=== PATIENT | female | born 1950 ===

== ENCOUNTER 2022-02-02 20:24 | Inpatient (IN) | payer MEDICARE, OTHER ==
[~2022-02-02] VITALS: Ht 160 cm; Wt 119.7 kg
[2022-02-02 23:11] LABS: BASOPHILS ABSOLUTE AUTO 0.03 K/mm3 (0.00-0.23); BASOPHILS PERCENT AUTO 0 % (0-2); EOSINOPHILS PERCENT AUTO 0 % (0-6); Hemoglobin 9.5 g/dL (11.5-16.0); IMMATURE GRAN ABSOLUTE AUTO 0.19 K/mm3 (0.00-0.10); IMMATURE GRAN PERCENT AUTO 1 % (0-1); LYMPHOCYTES ABSOLUTE AUTO 0.46 K/mm3 (0.84-5.20); LYMPHOCYTES PERCENT AUTO 2 % (21-46); MONOCYTES ABSOLUTE AUTO 1.36 K/mm3 (0.16-1.47); MONOCYTES PERCENT AUTO 6 % (4-13); Mean Corpuscular HGB 23.1 pg (26.0-34.0); Mean Corpuscular HGB Conc 29.7 g/dL (31.5-36.5); Mean Corpuscular Volume 78 fL (80-100); Mean Platelet Volume 10.4 fL (9.1-12.4); NEUTROPHILS ABSOLUTE AUTO 21.51 K/mm3 (1.96-9.15); NEUTROPHILS PERCENT AUTO 91 % (41-73); Platelet Count 72 K/mm3 (150-400); RDW Coefficient Variation 17.7 % (11.7-14.2); RDW Standard Deviation 49.8 fL (35.1-46.3); Red Blood Cell Count 4.11 M/mm3 (3.80-5.20); White Blood Cell Count 23.55 K/mm3 (4.00-11.30)
[2022-02-02 23:24] LABS: Albumin, Blood 1.8 g/dL (3.4-5.0); Albumin/Globulin Ratio 0.3 (0.8-1.8); Bilirubin, Total 1.7 mg/dL (0.1-1.0); Bun/Creatinine Ratio 12.6 (12.0-20.0); Creatinine, Blood 1.59 mg/dL (0.40-1.00); Globulin, Blood 5.4 g/dL (2.2-4.0); Potassium, Blood 4.9 mmol/L (3.5-5.5); Total Protein, Blood 7.2 g/dL (6.4-8.2)
[2022-02-03 00:02] LABS: Base Excess Venous 0.8 mmol/L; PO2 Venous 92.4 mmHg (38-42)
--- NOTE | 2022-02-03 00:18 | NUR ---
ADMISSION NOTE: PT ARRIVED TO ICU ROOM 7 AT 2135 VIA EMS ON TRANSPORT VENTILATOR AND WITH STATED RATE OF LEVOPHED OF 8MCG/MINUTE. LEVOPHED WAS NOT ON A PUMP FOR TRANSPORT. PT CONNECTED TO ICU MONITORS AND HOSPITAL VENTILATOR AND WAS THEN MOVED TO THE ICU BED. 7.5 ETT WAS NOTED TO BE AT 23CM AT PT'S TEETH, OGT IN PLACE AND CONNECTED TO LOW INTERMITTANT SUCTION. PT IS NOT CURRENTLY RESPONSIVE TO VERBAL SIMULUS BUT PUPILS AR BRAYDON. SWB PLACED FOR LINES AND TUBE PROTECTION. +3 GENERALIZED EDEMA NOTED.
--- NOTE | 2022-02-03 08:02 | NUR ---
SHIFT SUMMERY: PT ARRIVED FROM [facility] VIA EMS VENTED AND EMS REPORTS 300 MG KETAMINE AND 10 MD VERSED GIVEN EN-ROUTE FOR VENT COMPLIANCE. PT TRANSFERED TO ICU MONITORS WITHOUT INCIDENT. PT NOT RESPONSIVE TO VOICE, DOES NOT OPEN EYES TO PAIN OR TO VOICE BUT SHE DOES MOVE ALL EXTREMETIES TO PAIN. PT'S PUPILS ARE 4 AND PEARRL. PT HAS A MODERATE COUGH BUT NO GAG REFLEX. PT DOES SEEM TO TRY TO MANAGE ORAL SECREATIONS WITH A SWALLOW. PT HAS RIGHT EJ WHICH WAS PLACED BY EMS IN ROUTE. IJ PLACED AT [facility] HAS 7CM EXPOSED AND PER MD IS NOT DEEP ENOUGH PER MD ON CXR, BUT GOOD BLOOD RETUR WAS NOTED AND OK WAS RECEIVED FROM DR. CANTU TO INFUSE LEVOPHED THROUGH DISTAL LUMEN OVER NIGHT. PT HAS SKIN TEARS TO BILATERAL FOREARMS AND HAS ABRASIONS TO STERNUM WELL INJURY TO LEFT GREAT TOE NAIL. PHOTOS IN CHART. PT HAS VERY FRIGILE SKIN AND BLE ARE VERY EDEMETOUS AND REDNESS IS NOTED. PT TURNED Q2H AND ORAL CARE DONE PER NORMAL PRACTICE.
--- NOTE | 2022-02-03 10:00 | NUR ---
ASSUMED CARE BEDSIDE REPORT FROM RADHA DAVIDSON AT 0700. PT INTUBATED. VENT SETTINGS AC/VC 18/365/5/40%. LUNGS CLEAR, DIM IN BASES. PT NOT ON SEDATION. COUGH/SWALLOW REFLEX, NO GAG, NURIS. OVERBREATHING VENT. WITHDRAWS EXT TO PAINFUL STIMULI. DOES NOT FOLLOW COMMANDS. ST ON MONITOR. LEVO PLACED ON STANDBY, MAP>65. OGT TO LIS, RED/BROWN EMESIS OUT. ABD DISTENDED, FIRM, HYPOACTIVE BT. ANASCARCIA. 3+ EDEMA BLE, 2+ BUE. SKIN FRAGILE, MULTIPLE SKIN TEARS AND BRUISING. SEE SKIN ASSESSMENT. GONGORA PATENT, DRAINING CLEAR YELLOW URINE TO GRAVITY. PLAN FOR ECHO THIS SHIFT. CVC TO BE REMOVED THIS SHIFT D/T EXCESSIVE EXPOSED CATH. WILL CONTINUE TO MONITOR.
--- NOTE | 2022-02-03 14:16 | NUR ---
Echocardiogram using 0.50ml of Definity contrast eas performed.
--- NOTE | 2022-02-03 17:13 | NUR ---
SHIFT SUMMARY PT REMAINS INTUBATED. VENT SETTINGS AC/VC 18/365/5/35%. LUNGS COARSE c CRACKLES IN BASES. SCANT SECRETIONS THROUGH ETT. NEURO UNCHANGED, COUGH/SWALLOW REFLEX. WITHDRAWS FROM PAIN. ONE DOSE OF FENT GIVEN FOR VENT COMPLIANCE. TOLERATED WELL. LASIX D/C'D. 800 ML CLEAR YELLOW URINE OUT. GONGORA PATENT. ANASCARSA WORSE SINCE BEGINING OF SHIFT. ENTIRE BODY. LEVO TITRATED OFF. BP STABLE. ST ON MONITOR. CVC REMOVED, DRESSING INTACT. POWERGLIDE PLACED TO RUE. ECHO COMPLETE, ABD U/S IN PROCESS. BED BATH COMPLETE THIS SHIFT. WILL CONTINUE TO MONITOR UNTIL REPORT TO ONCOMING NURSE.
--- NOTE | 2022-02-03 19:00 | NUR ---
ASSUMED CARE. REPORT RECEIVED FROM ASHA DAVIDSON. PT RESTING IN BED, VENTILATED VIA ETT. VENT SETTINGS: 18/365/5/35%. OG TUBE IN PLACE, TF AT 20 ML/HR. PG IN LUZ ELENA, IV IN R/EJ. NS AT 10 ML/HR KVO. GONGORA CATHETER IN PLACE. SWB RESTRAINTS IN PLACE. VS STABLE WILL CONTINUE TO MONITOR.
[2022-02-04 03:42] LABS: BASOPHILS ABSOLUTE AUTO 0.02 K/mm3 (0.00-0.23); BASOPHILS PERCENT AUTO 0 % (0-2); EOSINOPHILS ABSOLUTE AUTO 0.03 K/mm3 (0.00-0.68); EOSINOPHILS PERCENT AUTO 0 % (0-6); Hematocrit 28.5 % (33.0-51.0); Hemoglobin 8.5 g/dL (11.5-16.0); IMMATURE GRAN ABSOLUTE AUTO 0.05 K/mm3 (0.00-0.10); IMMATURE GRAN PERCENT AUTO 0 % (0-1); LYMPHOCYTES PERCENT AUTO 5 % (21-46); MONOCYTES ABSOLUTE AUTO 0.91 K/mm3 (0.16-1.47); MONOCYTES PERCENT AUTO 8 % (4-13); Mean Corpuscular HGB 22.8 pg (26.0-34.0); Mean Corpuscular HGB Conc 29.8 g/dL (31.5-36.5); Mean Corpuscular Volume 76 fL (80-100); Mean Platelet Volume 10.7 fL (9.1-12.4); NEUTROPHILS ABSOLUTE AUTO 9.75 K/mm3 (1.96-9.15); NEUTROPHILS PERCENT AUTO 86 % (41-73); Platelet Count 51 K/mm3 (150-400); RDW Coefficient Variation 17.7 % (11.7-14.2); RDW Standard Deviation 48.6 fL (35.1-46.3); Red Blood Cell Count 3.73 M/mm3 (3.80-5.20); White Blood Cell Count 11.36 K/mm3 (4.00-11.30)
[2022-02-04 04:00] LABS: Albumin, Blood 1.6 g/dL (3.4-5.0); Albumin/Globulin Ratio 0.3 (0.8-1.8); Bilirubin, Total 0.7 mg/dL (0.1-1.0); Bun/Creatinine Ratio 22.8 (12.0-20.0); Calcium, Blood 7.8 mg/dL (8.5-10.1); Creatinine, Blood 1.49 mg/dL (0.40-1.00); Globulin, Blood 4.8 g/dL (2.2-4.0); Phosphorus, Blood 4.1 mg/dL (2.5-4.9); Potassium, Blood 4.1 mmol/L (3.5-5.5); Total Protein, Blood 6.4 g/dL (6.4-8.2)
--- NOTE | 2022-02-04 15:56 | NUR ---
FAMILY VISITING IN ROOM, DAUGHTER AND GRAND DAUGHTER
--- NOTE | 2022-02-04 17:52 | NUR ---
NO PURPOSEFUL MOVEMENTS, OPENS EYES SLOWLY, NO TRACKING, UNABLE TO MAKE NEEDS KNOWN, SCDS ON, + BABINSKI. RESPONDS TO PAINFUL STIMULUS. RESTRAINTS OFF, NO ARM MOVEMENT, ELEVATED ON PILLOWS, VERY FRAGILE SKIN, ARMS WEEPING, ROM. INTUBATED 7.5 SIZE, 23@ GUMS, ACVC 18/365/35%/5. ABD FIRM AND DISTENDED, NO CHARTED BM, NO RESIDUAL TODAY, TF AT 40 ML/HR, GONGORA TO GRAVITY. HEAD CT TOMORROW, FAMILY AT BEDSIDE, FAMILY HAS MEET WITH PALLIATIVE CARE, DR DON SPOKE WITH FAMILY ON THE PHONE, FAMILY WANTING TO WAIT UNTIL HEAD CT TOMORROW BEFORE MAKING ANY HEALTHCARE DECISIONS. REPOSITIONED EVERY TWO HOURS. WILL RELAY TO PM RNCRISTIANE
--- NOTE | 2022-02-04 18:58 | NUR ---
ASSUMED CARE. REPORT RECEIVED FROM ASHA DAVIDSON. FAMILY AT BEDSIDE. PT IN BED, VENTED VIA ETT. VENT SETTINGS: AC/VC 18/350/5/35%. OG TUBE IN PLACE, TF AT 30 ML/HR. PG IN LUZ ELENA, IV PUMP RUNNING NS AT 10 ML/HR TKO. GONGORA CATHETER IN PLACE. VS STABLE ATT, WILL CONTINUE TO MONITOR.
[2022-02-05 04:12] LABS: BASOPHILS ABSOLUTE AUTO 0.02 K/mm3 (0.00-0.23); BASOPHILS PERCENT AUTO 0 % (0-2); EOSINOPHILS PERCENT AUTO 1 % (0-6); Hematocrit 28.3 % (33.0-51.0); Hemoglobin 8.4 g/dL (11.5-16.0); IMMATURE GRAN ABSOLUTE AUTO 0.03 K/mm3 (0.00-0.10); IMMATURE GRAN PERCENT AUTO 0 % (0-1); LYMPHOCYTES ABSOLUTE AUTO 0.61 K/mm3 (0.84-5.20); LYMPHOCYTES PERCENT AUTO 9 % (21-46); MONOCYTES ABSOLUTE AUTO 0.62 K/mm3 (0.16-1.47); MONOCYTES PERCENT AUTO 9 % (4-13); Mean Corpuscular HGB 22.8 pg (26.0-34.0); Mean Corpuscular HGB Conc 29.7 g/dL (31.5-36.5); Mean Corpuscular Volume 77 fL (80-100); Mean Platelet Volume 10.6 fL (9.1-12.4); NEUTROPHILS ABSOLUTE AUTO 5.61 K/mm3 (1.96-9.15); NEUTROPHILS PERCENT AUTO 80 % (41-73); Platelet Count 51 K/mm3 (150-400); RDW Coefficient Variation 17.8 % (11.7-14.2); RDW Standard Deviation 49.1 fL (35.1-46.3); Red Blood Cell Count 3.69 M/mm3 (3.80-5.20); White Blood Cell Count 6.99 K/mm3 (4.00-11.30)
[2022-02-05 04:30] LABS: Albumin, Blood 1.5 g/dL (3.4-5.0); Anion Gap 3 mmol/L (6-16); Blood Urea Nitrogen 36 mg/dL (8-24); Bun/Creatinine Ratio 35.3 (12.0-20.0); CO2, Blood 32 mmol/L (21-32); Calcium, Blood 7.6 mg/dL (8.5-10.1); Chloride, Blood 103 mmol/L (98-108); Creatinine, Blood 1.02 mg/dL (0.40-1.00); Glomerular Filtration Rate 59 (60-); Glucose, Blood 147 mg/dL (70-99); Phosphorus, Blood 2.9 mg/dL (2.5-4.9); Potassium, Blood 3.8 mmol/L (3.5-5.5); Sodium, Blood 138 mmol/L (136-145)
--- NOTE | 2022-02-05 06:21 | NUR ---
SHIFT SUMMARY. PT RESTED IN BED THROUGHOUT SHIFT. VENT SETTINGS UNCHANGED. TF AT 40 ML/HR CURRENTLY. NS TKO 10 ML/HR, PROPOFOL AT 10 MCG/KG/MIN. GNOGORA IN PLACE, 650 MLS DARK URINE OUT THIS SHIFT. VS STABLE THROUGHOUT SHIFT. PT REQUIRED MULTIPLE PRN DOSES OF FENTANYL DURING SHIFT. ORDER OBTAINED FROM DR. LANGLEY FOR PROPOFOL FOR FURTHER SEDATION IN ORDER TO MAINTAIN VENT COMPLIANCE. SEE SHIFT ASSESSEMENT FOR FURTHER DETAILS, WILL CONTINUE TO MONITOR AND REPORT OFF TO DAYSHIFT RN.
--- NOTE | 2022-02-05 08:39 | NUR ---
[place] of Care: Care assumed at 0700hr. Patient intubated and sedated with propofol gtt at 10mcg/kg/min. Facial grimace to noxious stimuli, but not following any commands. Fixed upward gaze, pupils equal and brisk reaction to lite. Occasional non-purposeful movement of BLE's, normal plantar reflex. Positive cough but no gag reflex. Vent to AC 18/350/5/35%, spO2- 97%, occasional coughing but tolerating vent without difficulty. HR shows sinus rhythm in the 80's BP stable. Power-glide to LUZ ELENA patent and intact. EJ to rt side of neck, plan to remove early this shift (placed in [place] before admission). Santiago cath patent and intact, draining clear dark yellow urine. TF at 40ml/hr at shift change, residual of 10ml this morning. TF rate then increased to goal of 50ml/hr. Propofol gtt stopped at approx 0730hr. Patient no longer has fixed upward gaze, and occasionally opening eyes. No tracking staff, no corneal reflex, and continues to not follow any commands. Heart rhythm then began to go in-and-out of A-fibb, rate increasing to the 140's-150. Patient also had increase in coughing and breath stacking. Prn fentanyl given with good effect. Heart rhythm now back to sinus rhythm, BP remains stable. Will continue to monitor.
--- NOTE | 2022-02-05 16:30 | NUR ---
review of pt with nursing staff. Theraputic time with pt comforting her and talking to her.
--- NOTE | 2022-02-05 17:59 | NUR ---
Shift Summary: Patient remains inutabated, no changes to vent settings throughout shift. No significant changes to neuro status throughout shift. Patient was able to open eyes to verbal stimuli and slightly turned head to command, but continues to not track staff or follow any commands. HR remained stable and in sinus rhythm throughout the morning. At approx 1200hr HR changed to A-fibb-RVR with rate 140's-170's. Received orders per Dr. Jones to give 5mg cardizem push followed by cardizem gtt. Cardizem started at 5mg/hr then titrated up to 15mg/hr, effective to decrease heart rate to 70's but remains A-fibb. Attempted to stop cardizem gtt from 5mg/hr, but heart rate increased back to 130's. Gtt now at 5mg/hr, HR stable. Plan to consult with Dr. Jones about starting PO cardizem when he is available. Continues to tolerate TF without difficulty. Santiago cath remains patent and intact, draining clear yellow urine. New PG placed to REGINALDO, now bilateral PG's, both patent and intact. EJ to right neck D/C'd without difficulty. Bedside report given to NOC shift RN.
--- NOTE | 2022-02-05 22:26 | NUR ---
ASSUMED CARE AT 1900 PATIENT IS INTUBATED AND GETTING FENTANYL FOR COMFORT/SEDATION. PATIENT CONTINUED TO COUGH AND UNABLE TO TOLERATE VENT, PROPOFOL STARTED PER DR. DON. PATIENT WITHDRAWS TO PAIN AND OPENS EYES TO SOUND, NO TRACKING OR FOLLOWING COMMANDS. 02 SATS 97% ON VENT AC VC + 18/365/5/40%, RR 18-22. LS CLEAR/DIM. HR A. FLUTTER, ON CARDIZEM DRIP AT 5 MG/HR, TALKED WITH DR. DON ABOUT PO CARDIZEM, TO CONTINUE IV TONIGHT. GONGORA PATENT AND DRAINING TO GRAVITY. SOME VAGINAL BLEEDING, DR YUDITH. TURNED AND ORAL CARE COMPLETE. SEE SHIFT ASSESSMENT FOR MORE DETAIL.
[2022-02-06 05:13] LABS: BASOPHILS ABSOLUTE AUTO 0.03 K/mm3 (0.00-0.23); BASOPHILS PERCENT AUTO 0 % (0-2); EOSINOPHILS ABSOLUTE AUTO 0.17 K/mm3 (0.00-0.68); EOSINOPHILS PERCENT AUTO 3 % (0-6); Hematocrit 30.4 % (33.0-51.0); Hemoglobin 8.9 g/dL (11.5-16.0); IMMATURE GRAN ABSOLUTE AUTO 0.02 K/mm3 (0.00-0.10); IMMATURE GRAN PERCENT AUTO 0 % (0-1); LYMPHOCYTES ABSOLUTE AUTO 0.98 K/mm3 (0.84-5.20); LYMPHOCYTES PERCENT AUTO 15 % (21-46); MONOCYTES ABSOLUTE AUTO 0.82 K/mm3 (0.16-1.47); MONOCYTES PERCENT AUTO 12 % (4-13); Mean Corpuscular HGB 22.8 pg (26.0-34.0); Mean Corpuscular HGB Conc 29.3 g/dL (31.5-36.5); Mean Corpuscular Volume 78 fL (80-100); Mean Platelet Volume 11.5 fL (9.1-12.4); NEUTROPHILS ABSOLUTE AUTO 4.72 K/mm3 (1.96-9.15); NEUTROPHILS PERCENT AUTO 70 % (41-73); RDW Coefficient Variation 17.8 % (11.7-14.2); RDW Standard Deviation 50.3 fL (35.1-46.3); Red Blood Cell Count 3.91 M/mm3 (3.80-5.20); White Blood Cell Count 6.74 K/mm3 (4.00-11.30)
[2022-02-06 05:35] LABS: Albumin, Blood 1.4 g/dL (3.4-5.0); Anion Gap 4 mmol/L (6-16); Blood Urea Nitrogen 40 mg/dL (8-24); Bun/Creatinine Ratio 38.5 (12.0-20.0); CO2, Blood 34 mmol/L (21-32); Calcium, Blood 7.5 mg/dL (8.5-10.1); Chloride, Blood 103 mmol/L (98-108); Creatinine, Blood 1.04 mg/dL (0.40-1.00); Glomerular Filtration Rate 57 (60-); Glucose, Blood 147 mg/dL (70-99); Phosphorus, Blood 2.8 mg/dL (2.5-4.9); Potassium, Blood 3.7 mmol/L (3.5-5.5); Sodium, Blood 141 mmol/L (136-145)
[2022-02-06 05:37] LABS: Platelet Count 50 K/mm3 (150-400)
--- NOTE | 2022-02-06 05:38 | NUR ---
SHIFT SUMMARY PATIENT REMAINS INTUBATED AND SEDATED ON PROPOFOL. OPENS EYES TO TOUCH, NO TRACKING, NO FOLLOWING COMMANDS, RESPONDS TO PAIN. 02 SATS 97% ON VENT 18/365/5/40%. HR A.FLUTTER, 70s, CARDIZEM DRIP INF AT 5MG/HR. BP STABLE. TUBE FEED INF AT GOAL RATE 50 MLS HR WITH 30 MLS FLUSHES Q4 HOURS. RISDUALS 45 MLS. GONGORA PATENT AND DRAINING TO GRAVITY. BATH COMPLETED THIS SHIFT WITH LINEN CHANGE. DRESSING CHNAGED ON WOUNDS. PATIENT TURNED Q2 HOURS. SCDs IN PLACE, BREAKS PROVIDED.
--- NOTE | 2022-02-06 18:07 | NUR ---
SHIFT SUMMARY: PT REMAINS INTUBATED AND SEDATED. UNABLE TO RESPOND TO VERBAL AND NOXIOUS STIMULI. PROPOFOL INFUSING AT 15 MCG/KG/MIN. CARDIZEM GTT @ 5MG/HR. PT REMAINS IN AFLUTTER. HR 70'S-80'S. BP STABLE. O2 SATS >95%. VENT SETTINGS AC/VC 18/365/5/40%. TF INUFUSING AT GOAL RATE. PT HAS GONGORA CATHETER IN PLACE DRAINING YELLOW URINE TO GRAVITY. HAD APPROX 600ML OF OUTPUT THIS SHIFT. PT REPOS Q2. WILL CONTINE TO MONITOR AND REPORT TO ONCOMING RN.
--- NOTE | 2022-02-06 20:47 | NUR ---
ASSUMED CARE AT 1900 PATIENT IS INTUBATED AND SEDATED ON PROPOFOL. NO EYE OPENING AT THIS TIME, PUPILS EQUAL AND REACTIVE, WITHDRAWS TO PAIN. 02 SATS 95% ON VENT AC VC 18/365/5/40%, RR 19. TOLERATING VENT WILL WITH SEDATION. HR A. FLUTTER 70s, CARDIZEM INF AT 5 MG/HR. BP STABLE. OG INF VITAL HP AT GOAL RATE OF 50 MLS/HR, WITH 30 MLS FLUSHES Q4 HOURS. GONGORA PATENT AND DRAINING TO GRAVITY, SMALL AMOUNT OF VAGINAL BLEEDING. WOUND DRESSINGS CHANGED AND DRY PADS PLACED UNDER UPPER EXTREMETIES FOR WEEPING. EXTREMETIES ELEVATED, PATIENT REPOSITIONED AND ORAL CARE DONE. SEE SHIFT ASSESSMENT FOR MORE DETAIL.
[2022-02-07 03:44] LABS: Albumin, Blood 1.4 g/dL (3.4-5.0); Anion Gap 4 mmol/L (6-16); Blood Urea Nitrogen 41 mg/dL (8-24); Bun/Creatinine Ratio 45.7 (12.0-20.0); CO2, Blood 34 mmol/L (21-32); Calcium, Blood 7.9 mg/dL (8.5-10.1); Chloride, Blood 103 mmol/L (98-108); Glomerular Filtration Rate 68 (60-); Glucose, Blood 158 mg/dL (70-99); Phosphorus, Blood 2.8 mg/dL (2.5-4.9); Potassium, Blood 3.5 mmol/L (3.5-5.5); Sodium, Blood 141 mmol/L (136-145)
--- NOTE | 2022-02-07 05:58 | NUR ---
SHIFT SUMMARY PATIENT REMAINS INTUBATED AND SEDATED ON PROPOFOL. PUPILS REACTIVE AND EYE OPENING TO PAINFUL STIMULI. MOVEMENT IN LOWER EXTREMETIES, UPPER EXTREMETIES ABSENT OF MOVEMENT. 02 SATS 96% ON VENT AC VC 18/365/5/40%. HR A. FLUTTER MOST THE SHIFT, A.FIB AT TIMES, CARDIZEM DRIP STILL INFUSING. BP STABLE. OG INF TUBE FEED AT GOAL RATE WITH VITAL HP AT 50 MLS/HR. GONGORA PATENT AND DRAINING TO GRAVITY. BED BATH COMPLETE. REPOSITIONED Q2 HOURS.
--- NOTE | 2022-02-07 14:36 | NUR ---
EXTUBATION TO COMFORT CARE MULTIPLE PT CHILDREN AND GRANDAUGHTER AT BEDSIDE THIS AFTERNOON TO SEE PT. EXTENSIVE DISCUSSION ABOUT PT CONDITION AND OPTIONS FOR CARE HAD. PT FAMILY HAS DECIDED TO WITHDRAW CARE AND MAKE PT COMFORT CARE. MAINOR FROM PALLIATIVE CARE AT BEDSIDE TO PROVIDE SUPPORT. DR DON NOTIFIED AND OK GIVEN TO PROCEED WITH EXTUBATION AND COMFORT CARE. PT PREMEDICATED WITH MORPHINE IV, THEN PT EXTUBATED AT 1430 BY RT. PT FAMILY REMAINS AT BEDSIDE. WILL CONTINUE TO MONITOR.
--- NOTE | 2022-02-07 14:53 | NUR ---
Spoke with small business director Len and Primary RN Tre. Family has arrived and has elected to move forward with comfort care. Pt resting in bed and intubated. Family at bedside. Offered therapeutic listening and answered questions. Gentle discussion on what to expect with terminal withdrawel of care. Continued supportive visit as Pt is premedicated by primary RN and is Extubated. Gentle discussion with family on the importance of speaking with Pt and offering reassurance. Continued supportive visit. Ended visit to allow family alone time. Pt appears comfortalbe with no S/S of distress. Palliative Care will remain available.
--- NOTE | 2022-02-07 14:58 | NUR ---
Spiritual Care Call Back Pt, is nonresponsive and intubated. Several family members are present and welcome my visit. Facilitate a Life review of Pt with family members present. Listen empathetically. Jerry from Palliative Care is present and communicates to the family that respiratory therapist has been called and will be there soon to Extubate. At the families request we pray for Pt. some family members are cathartic, some have to excuse themselves. Pastoral health counselor is given that addresses the personal nature of grief. RT extubation occurs and Pts. eyes open and family members return. During an appropriate moment scripture is read. As much as possible normalize the Pt. experience. Requested nursing assistance to address Pts. secretion gurgle. Family members verbalize gratitude for the spiritual care visit when I excuse myself. Family has chosen [facility] as the preferred home for the Pt. when she passes.
--- NOTE | 2022-02-07 18:24 | NUR ---
ASSUMPTION OF CARE/SHIFT SUMMARY: PT TRANSFERED TO MEDICAL FLOOR APPROX 1715, ACCOMPANIED BY GRANDCHILDREN. PT CONTINUES ON COMFORT CARE, APPEARS TO REST PEACEFULLY, REPOSITIONED PER PROTOCOL, NO SIGNS OF AGITATION/AIR HUNGER. WILL CONTINUE TO MONITOR AND TREAT ACCORDINGLY UNTIL CHANGE OF SHIFT.
[2022-02-07] MEDS ORDERED: DILT120ERA PO (21:12)
[2022-02-07] MEDS ORDERED: PRED20 PO (21:12)
--- NOTE | 2022-02-08 02:15 | NUR ---
PT MOANING W/FACIAL GRIMACES NOTED. SHE'S DEVELOPED ORAL SECRETIONS AND SHOWS S/S AIR HUNGER. PT SUCTIONED AND REPOSITIONED W/PRN ROXINOL, ATIVAN AND ATROPINE GTTS PROVIDED, AWAITING EFFECT. WCTM CLOSELY AND MAINTAIN COMFORT MEASURES PRN.
--- NOTE | 2022-02-08 05:34 | NUR ---
SUMMARY: PT REMAINS ON COMFORT MEASURES. SHE'S NONVERBAL AND PREDOMINANTLY NONRESPONSIVE BUT OCCASIONALLY MOANS AND OPENS EYES MOMENTARILY TO VOICE. ROXINOL, ATIVAN AND ATROPINE GTTS PROVIDED PRN T/O NOCTE FOR S/S AIR HUNGER, PAIN, ANXIETY AND ORAL SECRETIONS. SUCTIONING AND MOUTH CARE ATTENDED TO W/TURN SCHEDULE MAINTAINED. PT'S EXT'S ARE EDEMATOUS AND WEAPING W/CHUCKS REPLACED PRN FOR REDUCTION OF MOISTURE AND SBD PREVENTION. OGNGORA IS PATENT AND DRAINING. NO ACUTE CHANGES. WCTM AND REPORT TO DAY RN.
--- NOTE | 2022-02-08 08:20 | NUR ---
Comfort Care Visit Jessika is lying quietly in her bed with the HOB slighly elevated. Her resp are non labored. EMAR reviewed, she was recently medicated with roxanol. Occasional soft moan, however she did not awaken when this curriculum writer entered the room. No nonverbal signs of discomfort noted at this time. Will continue to monitor. No family is currently in her room at this time.
--- NOTE | 2022-02-08 15:45 | NUR ---
PATIENT HAS TRANSITIONED; TWO RN VARIFIED AT 1525. ADAPTED PHYSICAL EDUCATION AIDE, MD, AND FAMILY INFORMED. LINES REMOVED AND CARE DONE.
== END 2022-02-08 15:24 | DRG 870 ==
LOC: ICUW 22:03 → ICUE 22:03 → MEDS 02-07 17:06 → ENPENDDIS 02-08 15:29
PROVIDERS: Internal Medicine; Internal Medicine Critical Care Medicine; ADMIT Internal Medicine
PROC: 5A1955Z Respiratory Ventilation, Greater than 96 Consecutive Hours (ICD-10-PCS; principal; 2022-02-02)
PROC: 3E033XZ Introduction of Vasopressor into Peripheral Vein, Percutaneous Approach (ICD-10-PCS; 2022-02-02)
PROC: 3E03329 Introduction of Other Anti-infective into Peripheral Vein, Percutaneous Approach (ICD-10-PCS; 2022-02-02)
DX: A41.9 Sepsis, unspecified organism (principal); J96.01 Acute respiratory failure with hypoxia; J18.9 Pneumonia, unspecified organism; R65.21 Severe sepsis with septic shock; R18.8 Other ascites; N17.9 Acute kidney failure, unspecified; Z51.5 Encounter for palliative care; Z66 Do not resuscitate; G93.1 Anoxic brain damage, not elsewhere classified; J44.0 Chronic obstructive pulmonary disease with (acute) lower respiratory infection; J81.1 Chronic pulmonary edema; I46.9 Cardiac arrest, cause unspecified; R77.8 Other specified abnormalities of plasma proteins; D69.6 Thrombocytopenia, unspecified; I11.0 Hypertensive heart disease with heart failure; I49.01 Ventricular fibrillation; I50.9 Heart failure, unspecified; I48.91 Unspecified atrial fibrillation; K74.60 Unspecified cirrhosis of liver; R94.4 Abnormal results of kidney function studies; E66.9 Obesity, unspecified; B95.5 Unspecified streptococcus as the cause of diseases classified elsewhere; F17.210 Nicotine dependence, cigarettes, uncomplicated; Z98.51 Tubal ligation status; Z79.01 Long term (current) use of anticoagulants; Z79.899 Other long term (current) drug therapy
CPT/HCPCS: 31720; 36415; 70450; 71045; 76705; 80053; 80069; 82140; 82803; 82947; 83605; 83735; 84100; 84484; 85025; 87040; 87070; 87205; 94002; 94003; 94762; 99407; A9270; C1751; C8929; J0456; J0696; J1940; J2060; J2270; J2704; J3010; J3411; J7040; J7050; J7060; Q9957